=== PATIENT | male | born 1995 | race American Indian/Alaskan Native ===

== ENCOUNTER 2021-05-05 17:03 | Inpatient (IN) | payer BC, OTHER ==
[2021-05-05 18:16] LABS: Basophils % (Auto) 0.3 % (0.0-1.8); Eosinophils # (Auto) 0.1 K/mm3 (0.0-0.4); Eosinophils % (Auto) 1.4 % (0.0-4.3); Hematocrit 42.7 % (35.5-45.6); Hemoglobin 14.3 gm/dl (11.8-15.2); Lymphocytes # (Auto) 2.3 K/mm3 (1.2-5.4); Lymphocytes % (Auto) 23.8 % (13.4-35.0); Mean Corpuscular HGB Conc 33 % (32-34); Mean Corpuscular Volume 96 fl (84-94); Monocytes # (Auto) 0.6 K/mm3 (0.0-0.8); Monocytes % (Auto) 6.5 % (0.0-7.3); Platelet Count 238 K/mm3 (140-440); Red Blood Count 4.46 M/mm3 (3.65-5.03); Red Cell Distribution Width 13.3 % (13.2-15.2)
[2021-05-05 18:39] LABS: Alanine Aminotransferase 15 units/L (7-56); Albumin 4.1 g/dL (3.9-5); BUN/Creatinine Ratio 5; Blood Urea Nitrogen 5 mg/dL (9-20); Calcium 9.9 mg/dL (8.4-10.2); Hemolysis Index 19
[2021-05-05 18:50] LABS: Bilirubin,Direct < 0.2 mg/dL (0-0.2)
[2021-05-05] MEDS ORDERED: SODIUM CHLORIDE 0.9% 1000 ML 1,000 ML IV ONE (18:59)
[2021-05-05] MEDS ORDERED: HYDROmorphone 1 MG/1 ML INJ IV ONE ×2 (18:59→19:37)
[2021-05-05] MEDS ORDERED: ONDANSETRON 4 MG/2 ML INJ IV ONE ×2 (19:00→19:37)
--- NOTE | 2021-05-05 19:07 | Emergency Department Report ---
HPI - General Chief Complaint: Abdominal Pain Time Seen by Provider: 05/05/21 17:52 - HPI HPI: 26-year-old male with no known past medical history presents complaining of sudden onset of right sided lower back pain which has migrated around his flank to the right lower quadrant of his abdomen since 4 PM today. The patient says that approximately 2 and half hours prior to arrival he was driving his car when he began to experience a dull pain in his right lower back it quickly progressed around his flank to the right lower quadrant of his abdomen. He describes it as a pressure-like pain. It is 8 out of 10 in severity and with associated nausea but no vomiting. There are no known aggravating or alleviating factors. Other than this he has had very mild dry cough over the past few days. He denies any other associated symptoms or complaints including fever/chills, headache, vision change, chest pain, shortness of breath, focal weakness, sensory changes, dysuria, hematuria, or any other complaints. ED Past Medical Hx - Past Medical History Previous Medical History?: No - Surgical History Past Surgical History?: No - Social History Smoking Status: Never Smoker Substance Use Type: None - Medications Home Medications: Home Medications Medication Instructions Recorded Confirmed Last Taken Type Bictegrav/Emtricit/Tenofov Ala 1 tab PO DAILY 05/05/21 05/05/21 Unknown History [Biktarvy 50-200-25 mg (Nf)] ED Review of Systems ROS: Stated complaint: ABD PAIN Other details as noted in HPI Constitutional: denies: chills, fever Eyes: denies: eye pain, vision change ENT: denies: throat pain, congestion Respiratory: cough. denies: shortness of breath Cardiovascular: denies: chest pain, palpitations Gastrointestinal: abdominal pain, nausea. denies: vomiting, diarrhea Genitourinary: denies: dysuria, hematuria Musculoskeletal: back pain. denies: myalgia Skin: denies: rash Neurological: denies: headache, weakness, numbness Physical Exam - Physical Exam Vital Signs: Vital Signs 05/05/21 05/05/21 17:48 18:25 Temperature 98.6 F Pulse Rate 50 L 52 L Respiratory 18 15 Rate Blood Pressure 138/88 137/91 [Right] O2 Sat by Pulse 98 100 Oximetry Physical Exam: GENERAL: Well developed and well nourished. In mild distress secondary to pain HEENT: Normocephalic. No obvious signs of trauma. Moist mucous membranes. EYES: Extraocular movements are intact. Pupils are equal round and reactive to light bilaterally NECK: Supple. Trachea is midline. LUNGS: Nonlabored breathing. Equal chest rise bilaterally. Clear to auscultation bilaterally. HEART/CARDIOVASCULAR: Regular rate and rhythm. No murmurs or rubs. VASCULAR: 2+ peripheral pulses. Cap refill < 2 seconds ABDOMEN: Abdomen is soft and nondistended. There is tenderness to palpation of the right upper quadrant and right lower quadrant with voluntary but no involuntary guarding. There is no rebound tenderness. SKIN: Skin is warm and dry NEURO: Patient is awake, alert, and oriented. teller vault II-XII grossly intact. No focal deficits. Normal motor and sensory exam throughout. Normal speech. MUSCULOSKELETAL: No obvious deformities. No significant tenderness. BACK/SPINE: No mid-spinal or costovertebral angle tenderness. ED Course Vital Signs 05/05/21 05/05/21 17:48 18:25 Temperature 98.6 F Pulse Rate 50 L 52 L Respiratory 18 15 Rate Blood Pressure 138/88 137/91 [Right] O2 Sat by Pulse 98 100 Oximetry ED Medical Decision Making - Lab Data Result diagrams: 05/06/21 04:47 05/06/21 04:47 Lab Results 05/05/21 05/05/21 05/05/21 Range/Units 18:01 18:01 19:03 WBC 9.8 (4.5-11.0) K/mm3 RBC 4.46 (3.65-5.03) M/mm3 Hgb 14.3 (11.8-15.2) gm/dl Hct 42.7 (35.5-45.6) % MCV 96 H (84-94) fl MCH 32 (28-32) pg MCHC 33 (32-34) % RDW 13.3 (13.2-15.2) % Plt Count 238 (140-440) K/mm3 Lymph % (Auto) 23.8 (13.4-35.0) % [place] % (Auto) 6.5 (0.0-7.3) % Eos % (Auto) 1.4 (0.0-4.3) % Baso % (Auto) 0.3 (0.0-1.8) % Lymph # (Auto) 2.3 (1.2-5.4) K/mm3 [place] # (Auto) 0.6 (0.0-0.8) K/mm3 Eos # (Auto) 0.1 (0.0-0.4) K/mm3 Baso # (Auto) 0.0 (0.0-0.1) K/mm3 Seg Neutrophils % 68.0 (40.0-70.0) % Seg Neutrophils # 6.7 (1.8-7.7) K/mm3 Sodium 138 (137-145) mmol/L Potassium 3.9 (3.6-5.0) mmol/L Chloride 102.6 (98-107) mmol/L Carbon Dioxide 28 (22-30) mmol/L Anion Gap 11 mmol/L BUN 5 L (9-20) mg/dL Creatinine 1.0 (0.8-1.3) mg/dL Estimated GFR > 60 ml/min BUN/Creatinine Ratio 5 % Glucose 94 (75-100) mg/dL Calcium 9.9 (8.4-10.2) mg/dL Total Bilirubin 0.20 (0.1-1.2) mg/dL Direct Bilirubin < 0.2 (0-0.2) mg/dL Indirect Bilirubin 0.0 mg/dL AST 25 (5-40) units/L ALT 15 (7-56) units/L Alkaline Phosphatase 91 (35-129) units/L Total Protein 7.7 (6.3-8.2) g/dL Albumin 4.1 (3.9-5) g/dL Albumin/Globulin Ratio 1.1 % Lipase 33 (13-60) units/L Urine Color Yellow (Yellow) Urine Turbidity Clear (Clear) Urine pH 6.0 (5.0-7.0) Ur Specific [place] 1.039 H (1.003-1.030) Urine Protein <15 mg/dl (Negative) mg/dL Urine Glucose (UA) Neg (Negative) mg/dL Urine Ketones Neg (Negative) mg/dL Urine Blood Lg (Negative) Urine Nitrite Neg (Negative) Urine Bilirubin Neg (Negative) Urine Urobilinogen < 2.0 (<2.0) mg/dL Ur Leukocyte Esterase Neg (Negative) Urine WBC (Auto) 19.0 H (0.0-6.0) /HPF Urine RBC (Auto) > 182.0 (0.0-6.0) /HPF U Epithel Cells (Auto) < 1.0 (0-13.0) /HPF Urine Mucus 1+ /HPF Urine Yeast (Budding) Few /HPF - Radiology Data CT ABDOMEN AND PELVIS WITH IV CONTRAST INDICATION: Right flank pain, RLQ tenderness 100 ML OMNI 300. COMPARISON: None available. TECHNIQUE: All CT scans at this facility use dose modulation, automated exposure control, iterative reconstruction or weight based dosing, when appropriate, to reduce radiation dose to as low as reasonably achievable. FINDINGS: Lung Bases: No significant abnormality. Skeletal System: No acute abnormality. 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 ABDOMEN: Liver: No significant abnormality. Gallbladder: There is mild gallbladder wall edema. Bile Ducts: No significant abnormality. Pancreas: No significant abnormality. Spleen: No significant abnormality. Adrenals: No significant abnormality. Right Kidney: There is a 2 mm obstructing stone in the proximal right ureter with mild right hydronephrosis. There are a few nonobstructing calyceal stones which are 1 to 2 mm. Left Kidney: There are a few punctate nonobstructing calyceal stones. Upper GI tract: No significant abnormality. Lymph Nodes: No significant adenopathy. Aorta: No significant abnormality. Additional Findings: No significant abnormality. PELVIS: Colon: No acute abnormality. Urinary Bladder and Distal Ureters: No significant abnormality. Appendix: No significant abnormality. Lymph Nodes: No significant adenopathy. Additional Findings: None. IMPRESSION: 1. 2 mm obstructing stone in the proximal right ureter with mild right hydronephrosis. Bilateral nephrolithiasis is noted. 2. Incidental finding s, as above. Signer Name: Rich Méndez MD Signed: 05/05/2021 6:45 PM Workstation Name: [id number] - Medical Decision Making 26-year-old otherwise healthy male presenting with sudden onset right lower back pain which has migrated around his flank to the right lower quadrant. Some associated nausea but without vomiting. He is afebrile and with normal vital signs. On physical exam he has tenderness to palpation of the right upper quadrant and right lower quadrant voluntary but no involuntary guarding. He has no rebound tenderness. He has no CVA tenderness. Although the patient's symptoms could be explained by a kidney stone, given his abdominal tenderness we will perform broad work-up with full set of abdominal labs and CT of the abdomen and pelvis. We will give 1 L of IV fluids, Dilaudid, and Zofran and reassess. On repeat assessment at 6:50 PM, the patient reports that his pain is much improved. Labs have resulted and reveal no significant leukocytosis or anemia. There is no significant electrolyte abnormality. Kidney function is normal. At 7:36 PM, the patient reports that his pain has returned. We will therefore administer Dilaudid again and follow-up the results of the CT. CT of the abdomen pelvis reveals a 2 mm obstructing stone in the proximal right ureter with mild right hydronephrosis. Will obtain urinalysis to assess for evidence of infected obstructed ureteral stone. Urinalysis reveals multiple RBCs but also with 19 WBCs. Given the possibility of an infected obstructed kidney stone, I will send blood cultures and administ er IV ceftriaxone. I spoke over the phone with Dr. Phelps of urology who indicated that he is happy to consult on the patient. For now he recommends starting Flomax and having the patient strain his urine. The patient will be admitted to the hospitalist for further management. All this was discussed with the patient who expressed understanding and agreement with the plan of care. Critical care attestation.: If time is entered above; I have spent that time in minutes in the direct care of this critically ill patient, excluding procedure time. ED Disposition Clinical Impression: Right ureteral calculus, UTI (urinary tract infection), Hydronephrosis, right Disposition: [id number] OP ADMIT IP TO THIS HOSP Is pt being admited?: Yes Condition: Stable
--- NOTE | 2021-05-05 19:49 | Cat Scan Report ---
CT ABDOMEN AND PELVIS WITH IV CONTRAST INDICATION: Right flank pain, RLQ tenderness 100 ML OMNI 300. COMPARISON: None available. TECHNIQUE: All CT scans at this facility use dose modulation, automated exposure control, iterative reconstructi on or weight based dosing, when appropriate, to reduce radiation dose to as low as reasonably achieva ble. FINDINGS: Lung Bases: No significant abnormality. Skeletal System: No acute abnormality. 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 ABDOMEN: Liver: No significant abnormality. Gallbladder: There is mild gallbladder wall edema. Bile Ducts: No significant abnormality. Pancreas: No significant abnormality. Spleen: No significant abnormality. Adrenals: No significant abnormality. Right Kidney: There is a 2 mm obstructing stone in the proximal right ureter with mild right hydronep hrosis. There are a few nonobstructing calyceal stones which are 1 to 2 mm. Left Kidney: There are a few punctate nonobstructing calyceal stones. Upper GI tract: No significant abnormality. Lymph Nodes: No significant adenopathy. Aorta: No significant abnormality. Additional Findings: No significant abnormality. PELVIS: Colon: No acute abnormality. Urinary Bladder and Distal Ureters: No significant abnormality. Appendix: No significant abnormality. Lymph Nodes: No significant adenopathy. Additional Findings: None. IMPRESSION: 1. 2 mm obstructing stone in the proximal right ureter with mild right hydronephrosis. Bilateral nep hrolithiasis is noted. 2. Incidental findings, as above. Signer Name: Rich Méndez MD Signed: 05/05/2021 7:45 PM Workstation Name: [id number]
[2021-05-05] MEDS: HYDROmorphone 1 MG/1 ML INJ IV ONE ×2 (19:53→22:46)
[2021-05-05 20:37] LABS: Bilirubin,Urine NEG (Negative); Blood,Urine LG (Negative); Color,Urine Yellow (Yellow); Mucus,Urine 1+ /HPF; Protein,Urine <15 mg/dL mg/dL (Negative); Urobilinogen,Urine < 2.0 mg/dL (<2.0)
[2021-05-05 20:46] LABS: RBC,Urine > 182.0 /HPF (0.0-6.0)
[2021-05-05] MEDS ORDERED: cefTRIAXone/NS 2 GM/100 ML 2 GM/100 ML BAG IV ONE (21:18)
[2021-05-05] MEDS ORDERED: MORPHINE 2 MG/1 ML INJ IV PRN (22:04)
[2021-05-05] MEDS ORDERED: MAGNESIUM HYDROXIDE (MOM) ORAL LIQD UDC PO PRN (22:04)
[2021-05-05] MEDS ORDERED: ONDANSETRON 4 MG/2 ML INJ IV PRN (22:04)
--- NOTE | 2021-05-05 22:12 | History and Physical Report ---
History of Present Illness Date of examination: 05/05/21 Date of admission: 05/05/21 21:49 Chief complaint: Right Flank Pain History of present illness: 26-year-old -Mal[place]ian male with known history of HIV with CD4 count of 700s-LE April 2021 presenting to the emergency room today complaining of right- sided flank pain and right sided upper abdominal pain which started suddenly this evening. Pain has been ongoing for about 2-1/2 hours prior to reporting to the emergency room. Pain is said to feel like a dull ache. He denies any fall and denies any trauma to the abdomen. There is no known relieving or exacerbating factor. Patient denies any fever or chills, no nausea vomiting, no no diarrhea, no hematuria or dysuria. Patient denies any sick contacts and no recent travel. Denies any contact with anyone with COVID-19. Work-up in the emergency room today, CT of the abdomen and pelvis shows a 2 mm obstructing stone in the proximal right ureter with mild right hydronephrosis. There is bilateral nephrolithiasis Urinalysis reveals UTI. Patient has been admitted with nephrolithiasis and accompanying UTI. Past History Past Medical History: No medical history (Positive- unknown CD4 count.), other (HIV+ve with CD4 count in the - April 2021) Past Surgical History: No surgical history Social history: alcohol abuse (Occasionally) Family history: no significant family history Medications and Allergies Allergies Allergy/AdvReac Type Severity Reaction Status Date / Time No Known Allergies Allergy Unverified 05/05/21 18:11 Home Medications Medication Instructions Recorded Confirmed Last Taken Type Bictegrav/Emtricit/Tenofov Ala 1 tab PO DAILY 05/05/21 05/05/21 Unknown History [Biktarvy 50-200-25 mg (Nf)] Active Meds: Active Medications Acetaminophen (Acetaminophen 325 Mg Tab) 650 mg PO Q4H PRN PRN Reason: Pain MILD(1-3)/Fever >100.5/BLAS Ondansetron HCl (Ondansetron 4 Mg/2 Ml Inj) 4 mg IV Q8H PRN PRN Reason: Nausea And Vomiting Sodium Chloride (Sodium Chloride 0.9% 10 Ml Flush Syringe) 10 ml IV BID MARILY Sodium Chloride (Sodium Chloride 0.9% 10 Ml Flush Syringe) 10 ml IV PRN PRN PRN Reason: LINE FLUSH Tamsulosin HCl (Tamsulosin 0.4 Mg Cap) 0.4 mg PO DAILY MARILY Review of Systems Constitutional: no fever, no chills Ears, nose, mouth and throat: no nasal congestion, no sore throat Cardiovascular: no chest pain, no palpitations Respiratory: no cough, no shortness of breath, no wheezing Gastrointestinal: abdominal pain (Right upper abdomen.), nausea, no vomiting, no diarrhea Genitourinary Male: flank pain (Right flank pain) Musculoskeletal: no neck pain, no low back pain Integumentary: no rash, no pruritis Neurological: no headaches, no confusion Psychiatric: no anxiety, no depression Endocrine: no polyphagia, no polydipsia, no polyuria, no nocturia Exam - Constitutional Vitals: Temp Pulse Resp BP Pulse Ox 98.6 F 52 L 15 137/91 100 05/05/21 17:48 05/05/21 18:25 05/05/21 18:25 05/05/21 18:25 05/05/21 18:25 General appearance: Present: no acute distress, well-nourished - EENT Eyes: Present: PERRL, EOM intact. Absent: scleral icterus ENT: hearing intact, clear oral mucosa, dentition normal - Neck Neck: Present: supple, normal ROM - Respiratory Respiratory effort: normal Respiratory: bilateral: CTA - Cardiovascular Rhythm: regular Heart Sounds: Present: S1 & S2. Absent: gallop, systolic murmur, diastolic murmur, rub, click - Extremities Extremities: no ischemia, No edema Peripheral Pulses: within normal limits - Abdominal General gastrointestinal: Present: soft, tender (Mild right CVA tenderness), non-distended, normal bowel sounds. Absent: mass - Integumentary Integumentary: Present: clear, warm, dry. Absent: rash - Musculoskeletal Musculoskeletal: strength equal bilaterally - Psychiatric Psychiatric: appropriate mood/affect, intact judgment & insight, memory intact, cooperative - Neurologic Neurologic: CNII-XII intact, no focal deficits, moves all extremities Results - Labs CBC & Chem 7: 05/05/21 18:01 05/05/21 18:01 Labs: Abnormal lab results 05/05/21 05/05/21 05/05/21 Range/Units 18:01 18:01 19:03 MCV 96 H (84-94) fl BUN 5 L (9-20) mg/dL Ur Specific [place] 1.039 H (1.003-1.030) Urine WBC (Auto) 19.0 H (0.0-6.0) /HPF Assessment and Plan - Patient Problems (1) UTI (urinary tract infection) Current Visit: Yes Status: Acute Plan to address problem: Possibly secondary to the infected stone. Patient placed on empiric IV antibiotics. (2) Renal calculus, right Current Visit: Yes Status: Acute Plan to address problem: We will continue on IV fluid and analgesic medication. Urologist is been consulted for evaluation and recommendation. (3) DVT prophylaxis Current Visit: Yes Status: Acute Plan to address problem: Patient placed on sequential compression device. (4) Full code status Current Visit: Yes Status: Acute Plan to address problem: Patient is a full code.
[2021-05-05] MEDS: TAMSULOSIN 0.4 MG CAP PO SCH (22:42)
[2021-05-06 05:33] LABS: Basophils % (Auto) 0.3 % (0.0-1.8); Eosinophils # (Auto) 0.1 K/mm3 (0.0-0.4); Eosinophils % (Auto) 1.3 % (0.0-4.3); Lymphocytes # (Auto) 3.1 K/mm3 (1.2-5.4); Lymphocytes % (Auto) 36.4 % (13.4-35.0); Mean Corpuscular HGB Conc 33 % (32-34); Mean Corpuscular Volume 95 fl (84-94); Monocytes # (Auto) 0.7 K/mm3 (0.0-0.8); Monocytes % (Auto) 7.9 % (0.0-7.3); Platelet Count 229 K/mm3 (140-440); Red Blood Count 4.41 M/mm3 (3.65-5.03); Red Cell Distribution Width 13.7 % (13.2-15.2)
[2021-05-06 05:48] LABS: INR 1.07 (0.87-1.13)
[2021-05-06 06:11] LABS: BUN/Creatinine Ratio 6; Blood Urea Nitrogen 5 mg/dL (9-20); Calcium 8.9 mg/dL (8.4-10.2); Hemolysis Index 14
--- NOTE | 2021-05-06 08:24 | Progress Note ---
Assessment and Plan dicvtated npo recheck ct no sig pain now Subjective Date of service: 05/06/21 Principal diagnosis: stone r Objective - Constitutional Vitals: Vital Signs - 12hr 05/05/21 05/05/21 05/05/21 22:20 22:30 22:36 Temperature Pulse Rate 60 57 L Respiratory 14 14 18 Rate Blood Pressure 112/75 106/79 O2 Sat by Pulse 99 100 98 Oximetry 05/05/21 05/05/21 05/06/21 22:45 23:01 04:10 Temperature 98.6 F 98.0 F Pulse Rate 69 56 L 73 Respiratory 17 18 18 Rate Blood Pressure 132/84 119/81 O2 Sat by Pulse 98 98 97 Oximetry General appearance: Present: no acute distress - Neck Neck: supple - Respiratory Respiratory effort: normal Extremities: no ischemia - Gastrointestinal General gastrointestinal: Present: soft, non-tender - Genitourinary Male genitourinary: normal - Labs CBC & Chem 7: 05/06/21 04:47 05/06/21 04:47 Labs: Abnormal lab results 05/05/21 05/05/21 05/05/21 Range/Units 18:01 18:01 19:03 MCV 96 H (84-94) fl Lymph % (Auto) (13.4-35.0) % [place] % (Auto) (0.0-7.3) % BUN 5 L (9-20) mg/dL Ur Specific [place] 1.039 H (1.003-1.030) Urine WBC (Auto) 19.0 H (0.0-6.0) /HPF 05/06/21 05/06/21 Range/Units 04:47 04:47 MCV 95 H (84-94) fl Lymph % (Auto) 36.4 H (13.4-35.0) % [place] % (Auto) 7.9 H (0.0-7.3) % BUN 5 L (9-20) mg/dL Ur Specific [place] (1.003-1.030) Urine WBC (Auto) (0.0-6.0) /HPF Medications & Allergies - Medications Allergies/Adverse Reactions: Allergies No Known Allergies Allergy (Unverified 05/05/21 18:11) Home Medications: Home Medications Medication Instructions Recorded Confirmed Last Taken Type Bictegrav/Emtricit/Tenofov Ala 1 tab PO DAILY 05/05/21 05/05/21 Unknown History [Biktarvy 50-200-25 mg (Nf)] Active Medications: Generic Name Dose Route Start Last Admin Trade Name Freq PRN Reason Stop Dose Admin Acetaminophen 650 mg 05/05/21 22:04 Acetaminophen 325 Mg Tab PO Q4H PRN Pain MILD(1-3)/Fever >100.5/BLAS Sodium Chloride 1,000 mls @ 125 mls/hr 05/05/21 22:15 05/06/21 00:00 Nacl 0.9% 1000 Ml IV 125 mls/hr DIRECT MARILY Administration Ceftriaxone Sodium 2 gm in 100 mls @ 200 mls/hr 05/05/21 23:00 Rocephin/Ns 2 Gm/100 Ml IV Q24H MARILY Protocol Magnesium Hydroxide 30 ml 05/05/21 22:04 Magnesium Hydroxide (Mom) Oral Liqd Udc PO Q4H PRN Constipation Morphine Sulfate 2 mg 05/05/21 22:04 Morphine 2 Mg/1 Ml Inj IV Q4H PRN Pain, Moderate (4-6) Ondansetron HCl 4 mg 05/05/21 22:04 Ondansetron 4 Mg/2 Ml Inj IV Q8H PRN Nausea And Vomiting Sodium Chloride 10 ml 05/06/21 10:00 Sodium Chloride 0.9% 10 Ml Flush Syringe IV BID MARILY Sodium Chloride 10 ml 05/05/21 22:04 Sodium Chloride 0.9% 10 Ml Flush Syringe IV PRN PRN LINE FLUSH Tamsulosin HCl 0.4 mg 05/05/21 22:00 05/05/21 22:42 Tamsulosin 0.4 Mg Cap PO 0.4 mg DAILY MARILY Administration
--- NOTE | 2021-05-06 08:58 | Progress Note ---
Assessment and Plan Assessment and plan: Right ureteral stone Right hydronephrosis. UTI History of HIV 05/06/2021. CT of the abdomen and pelvis shows a 2 mm obstructing stone in the proximal right ureter with mild right hydronephrosis. Urology following. Continue IV antibiotics. Consider ID consultation. Follow-up urine and blood cultures. History Interval history: No new issues overnight. Hospitalist Physical - Constitutional Vitals: Temp Pulse Resp BP Pulse Ox 98.0 F 73 18 119/81 97 05/06/21 04:10 05/06/21 04:10 05/06/21 04:10 05/06/21 04:10 05/06/21 04:10 General appearance: Present: no acute distress - EENT Eyes: Present: PERRL, EOM intact ENT: hearing intact, clear oral mucosa, dentition normal - Neck Neck: Present: supple, normal ROM - Respiratory Respiratory effort: normal Respiratory: bilateral: CTA - Cardiovascular Rhythm: regular Heart Sounds: Present: S1 & S2. Absent: gallop, rub - Extremities Extremities: no ischemia, No edema, Full ROM - Abdominal General gastrointestinal: soft, non-tender, non-distended, normal bowel sounds - Integumentary Integumentary: Present: clear, warm, dry - Neurologic Neurologic: CNII-XII intact, moves all extremities Results - Labs CBC & Chem 7: 05/06/21 04:47 05/06/21 04:47 Labs: Laboratory Last Values WBC 8.5 K/mm3 (4.5-11.0) 05/06/21 04:47 RBC 4.41 M/mm3 (3.65-5.03) 05/06/21 04:47 Hgb 14.0 gm/dl (11.8-15.2) 05/06/21 04:47 Hct 42.0 % (35.5-45.6) 05/06/21 04:47 MCV 95 fl (84-94) H 05/06/21 04:47 MCH 32 pg (28-32) 05/06/21 04:47 MCHC 33 % (32-34) 05/06/21 04:47 RDW 13.7 % (13.2-15.2) 05/06/21 04:47 Plt Count 229 K/mm3 (140-440) 05/06/21 04:47 Lymph % (Auto) 36.4 % (13.4-35.0) H 05/06/21 04:47 [place] % (Auto) 7.9 % (0.0-7.3) H 05/06/21 04:47 Eos % (Auto) 1.3 % (0.0-4.3) 05/06/21 04:47 Baso % (Auto) 0.3 % (0.0-1.8) 05/06/21 04:47 Lymph # (Auto) 3.1 K/mm3 (1.2-5.4) 05/06/21 04:47 [place] # (Auto) 0.7 K/mm3 (0.0-0.8) 05/06/21 04:47 Eos # (Auto) 0.1 K/mm3 (0.0-0.4) 05/06/21 04:47 Baso # (Auto) 0.0 K/mm3 (0.0-0.1) 05/06/21 04:47 Seg Neutrophils % 54.1 % (40.0-70.0) 05/06/21 04:47 Seg Neutrophils # 4.6 K/mm3 (1.8-7.7) 05/06/21 04:47 PT 14.4 Sec. (12.2-14.9) 05/06/21 04:47 INR 1.07 (0.87-1.13) 05/06/21 04:47 Sodium 141 mmol/L (137-145) 05/06/21 04:47 Potassium 3.9 mmol/L (3.6-5.0) 05/06/21 04:47 Chloride 106.3 mmol/L (98-107) 05/06/21 04:47 Carbon Dioxide 28 mmol/L (22-30) 05/06/21 04:47 Anion Gap 11 mmol/L 05/06/21 04:47 BUN 5 mg/dL (9-20) L 05/06/21 04:47 Creatinine 0.9 mg/dL (0.8-1.3) 05/06/21 04:47 Estimated GFR > 60 ml/min 05/06/21 04:47 BUN/Creatinine Ratio 6 % 05/06/21 04:47 Glucose 87 mg/dL (75-100) 05/06/21 04:47 Calcium 8.9 mg/dL (8.4-10.2) 05/06/21 04:47 Total Bilirubin 0.20 mg/dL (0.1-1.2) 05/05/21 18:01 Direct Bilirubin < 0.2 mg/dL (0-0.2) 05/05/21 18:01 Indirect Bilirubin 0.0 mg/dL 05/05/21 18:01 AST 25 units/L (5-40) 05/05/21 18:01 ALT 15 units/L (7-56) 05/05/21 18:01 Alkaline Phosphatase 91 units/L (35-129) 05/05/21 18:01 Total Protein 7.7 g/dL (6.3-8.2) 05/05/21 18:01 Albumin 4.1 g/dL (3.9-5) 05/05/21 18:01 Albumin/Globulin Ratio 1.1 % 05/05/21 18:01 Lipase 33 units/L (13-60) 05/05/21 18:01 Urine Color Yellow (Yellow) 05/05/21 19:03 Urine Turbidity Clear (Clear) 05/05/21 19:03 Urine pH 6.0 (5.0-7.0) 05/05/21 19:03 Ur Specific [place] 1.039 (1.003-1.030) H 05/05/21 19:03 Urine Protein <15 mg/dl mg/dL (Negative) 05/05/21 19:03 Urine Glucose (UA) Neg mg/dL (Negative) 05/05/21 19:03 Urine Ketones Neg mg/dL (Negative) 05/05/21 19:03 Urine Blood Lg (Negative) 05/05/21 19:03 Urine Nitrite Neg (Negative) 05/05/21 19:03 Urine Bilirubin Neg (Negative) 05/05/21 19:03 Urine Urobilinogen < 2.0 mg/dL (<2.0) 05/05/21 19:03 Ur Leukocyte Esterase Neg (Negative) 05/05/21 19:03 Urine WBC (Auto) 19.0 /HPF (0.0-6.0) H 05/05/21 19:03 Urine RBC (Auto) > 182.0 /HPF (0.0-6.0) 05/05/21 19:03 U Epithel Cells (Auto) < 1.0 /HPF (0-13.0) 05/05/21 19:03 Urine Mucus 1+ /HPF 05/05/21 19:03 Urine Yeast (Budding) Few /HPF 05/05/21 19:03 Microbiology: Microbiology 05/05/21 21:25 Peripheral/Venous Blood Culture - Preliminary Culture in Progress 05/05/21 21:25 Peripheral/Venous Blood Culture - Preliminary Culture in Progress [place]/IV: Voiding Method Toilet Active Medications - Current Medications Current Medications: Generic Name Dose Route Start Last Admin Trade Name Freq PRN Reason Stop Dose Admin Acetaminophen 650 mg 05/05/21 22:04 Acetaminophen 325 Mg Tab PO Q4H PRN Pain MILD(1-3)/Fever >100.5/BLAS Sodium Chloride 1,000 mls @ 125 mls/hr 05/05/21 22:15 05/06/21 00:00 Nacl 0.9% 1000 Ml IV 125 mls/hr DIRECT MARILY Administration Ceftriaxone Sodium 2 gm in 100 mls @ 200 mls/hr 05/05/21 23:00 Rocephin/Ns 2 Gm/100 Ml IV Q24H MARILY Protocol Magnesium Hydroxide 30 ml 05/05/21 22:04 Magnesium Hydroxide (Mom) Oral Liqd Udc PO Q4H PRN Constipation Morphine Sulfate 2 mg 05/05/21 22:04 Morphine 2 Mg/1 Ml Inj IV Q4H PRN Pain, Moderate (4-6) Ondansetron HCl 4 mg 05/05/21 22:04 Ondansetron 4 Mg/2 Ml Inj IV Q8H PRN Nausea And Vomiting Sodium Chloride 10 ml 05/06/21 10:00 Sodium Chloride 0.9% 10 Ml Flush Syringe IV BID MARILY Sodium Chloride 10 ml 05/05/21 22:04 Sodium Chloride 0.9% 10 Ml Flush Syringe IV PRN PRN LINE FLUSH Tamsulosin HCl 0.4 mg 05/05/21 22:00 05/05/21 22:42 Tamsulosin 0.4 Mg Cap PO 0.4 mg DAILY MARILY Administration
--- NOTE | 2021-05-06 09:26 | Cat Scan Report ---
CT ABDOMEN AND PELVIS WITHOUT CONTRAST INDICATION / CLINICAL INFORMATION: Right ureteral stone, nephrolithiasis. TECHNIQUE: Axial CT images were obtained through the abdomen and pelvis without IV contrast. All CT scans at this location are performed using CT dose reduction for ALARA by means of automated exposure control. COMPARISON: CT scan dated 05/05/2021 FINDINGS: LOWER CHEST: There is minimal atelectasis in the right base. LIVER: No significant abnormality. GALLBLADDER: No significant abnormality. There is some high density material within the gallbladder o n the current study indicating vicarious excretion of contrast from the CT scan performed yesterday. BILE DUCTS: No significant abnormality. PANCREAS: No significant abnormality. SPLEEN: No significant abnormality. ADRENALS: No significant abnormality. RIGHT KIDNEY / URETER: 2 mm right ureteral stone appears unchanged. Nephrolithiasis appears unchanged . There is mild hydronephrosis which is stable. LEFT KIDNEY / URETER: Nephrolithiasis appears unchanged. STOMACH / SMALL BOWEL: No significant abnormality. COLON: No significant abnormality. APPENDIX: No significant abnormality. PERITONEUM: No free fluid. No free air. No fluid collection. LYMPH NODES: No significant adenopathy. AORTA / ARTERIES: No significant abnormality. IVC / VEINS: No significant abnormality. URINARY BLADDER: No significant abnormality. REPRODUCTIVE ORGANS: No significant abnormality. ADDITIONAL FINDINGS: None. SKELETAL SYSTEM: No significant abnormality. IMPRESSION: 1. 2 mm right ureteral stone with mild hydronephrosis appears unchanged. 2. Bilateral nephrolithiasis appears unchanged. Signer Name: Raman Ospina MD Signed: 05/06/2021 9:21 AM Workstation Name: [id number]
[2021-05-06] MEDS: cefTRIAXone/NS 2 GM/100 ML 2 GM/100 ML BAG IV SCH ×2 (12:33→22:38)
--- NOTE | 2021-05-06 14:02 | Consultation ---
DATE OF CONSULTATION: 05/06/2021 HISTORY OF PRESENT ILLNESS: The patient is a 26-year-old gentleman, admitted with severe right flank pain. He had a 2 mm stone in the upper ureter. The Emergency Room doctor asked if I would consult and the pain was unbearable. He had some evidence of infection, so they wanted to admit him. He is not in much pain now, but he is very concerned and does not want to go home if he thinks this may recur. PAST MEDICAL HISTORY: Negative. PAST SURGICAL HISTORY: Negative. SOCIAL HISTORY: Negative. FAMILY HISTORY: Noncontributory. REVIEW OF SYSTEMS: Intermittent right flank pain, right now improved. PHYSICAL EXAMINATION: GENERAL: He is awake. He is in no distress. ABDOMEN: Soft, nondistended. No significant CVA tenderness. GENITALIA: Testes descended bilaterally. Normal penis. No edema. IMPRESSION AND PLAN: Right 2 mm stone has not passed as yet. Repeat CT scan to see whether he passed it overnight because the urine was not strained and I will make the determination whether he wants anything done. All risks, implications discussed. Informed consent was obtained. We will repeat CT this morning. TID: [id number] RECEIPT: SHYLA/VIV/NICOLE
[2021-05-06] MEDS: TAMSULOSIN 0.4 MG CAP PO SCH (15:35)
[2021-05-06] MEDS: SODIUM CHLORIDE 0.9% 1000 ML 1,000 ML IV SCH ×2 (17:17)
--- NOTE | 2021-05-06 17:32 | Anesthesia Consultation ---
Anesthesia Consult and Med Hx Date of service: 05/07/21 - Airway Anesthetic Teeth Evaluation: Good ROM Head & Neck: Adequate Mental/Hyoid Distance: Adequate Mallampati Class: Class II Intubation Access Assessment: Probably Good - Pulmonary Exam CTA: Yes - Cardiac Exam Cardiac Exam: RRR - Pre-Operative Health Status ASA Pre-Surgery Classification: ASA2 Proposed Anesthetic Plan: General - Pulmonary Hx Smoking: No Hx Asthma: Yes (rare inhaler use) - Cardiovascular System Hx Hypertension: No - Central Nervous System CVA: No - Endocrine Hx Renal Disease: No (hynephrosis 2/2 renal stone with normal renal function) Hx Liver Disease: No Hx Insulin Dependent Diabetes: No Hx Non-Insulin Dependent Diabetes: No Hx Thyroid Disease: No - Other Systems Hx Obesity: No - Additional Comments Anesthesia Medical History Comments: Hx HIV on ARVs as outpatient. No prior GA. No FHx anesthetic complications.
[2021-05-06] MEDS: ACETAMINOPHEN 325 MG TAB PO PRN (23:15)
[2021-05-07] MEDS: SODIUM CHLORIDE 0.9% 1000 ML 1,000 ML IV SCH (00:39)
[2021-05-07] MEDS ORDERED: HYDROmorphone 1 MG/1 ML INJ ONE (07:48)
[2021-05-07] MEDS ORDERED: propofoL 200 MG/20 ML VIAL IV ONE (07:48)
[2021-05-07] MEDS ORDERED: LIDOCAINE MPF (2%) 20 MG/1 ML VIAL 5 ML ONE (07:48)
[2021-05-07] MEDS ORDERED: ONDANSETRON 4 MG/2 ML INJ IV PRN (08:17)
[2021-05-07] MEDS ORDERED: HYDROmorphone 1 MG/1 ML INJ IV PRN (08:17)
[2021-05-07] MEDS ORDERED: SODIUM CHLORIDE 0.9% 1000 ML 1,000 ML ONE (08:25)
--- NOTE | 2021-05-07 08:25 | Progress Note ---
Assessment and Plan Assessment and plan: Right ureteral stone Right hydronephrosis. UTI History of HIV 05/06/2021. CT of the abdomen and pelvis shows a 2 mm obstructing stone in the proximal right ureter with mild right hydronephrosis. Urology following. Continue IV antibiotics. Consider ID consultation. Follow-up urine and blood cultures. 05/07/2021. Repeat CT scan revealed no changes with obstructing stone in the proximal right ureter with hydronephrosis. Urology to perform surgery today for ureteral stone likely with stent placement. Continue pain control and supportive treatment with IV fluid hydration. History Interval history: No new issues overnight. Hospitalist Physical - Constitutional Vitals: Temp Pulse Resp BP Pulse Ox 98.8 F 68 20 114/68 100 05/07/21 07:26 05/07/21 07:26 05/07/21 07:26 05/07/21 07:26 05/07/21 07:26 General appearance: Present: no acute distress - EENT Eyes: Present: PERRL, EOM intact ENT: hearing intact, clear oral mucosa, dentition normal - Neck Neck: Present: supple, normal ROM - Respiratory Respiratory effort: normal Respiratory: bilateral: CTA - Cardiovascular Rhythm: regular Heart Sounds: Present: S1 & S2. Absent: gallop, rub - Extremities Extremities: no ischemia, No edema, Full ROM - Abdominal General gastrointestinal: soft, non-tender, non-distended, normal bowel sounds - Integumentary Integumentary: Present: clear, warm, dry - Neurologic Neurologic: CNII-XII intact, moves all extremities Results - Labs CBC & Chem 7: 05/06/21 04:47 05/06/21 04:47 Labs: Laboratory Last Values WBC 8.5 K/mm3 (4.5-11.0) 05/06/21 04:47 RBC 4.41 M/mm3 (3.65-5.03) 05/06/21 04:47 Hgb 14.0 gm/dl (11.8-15.2) 05/06/21 04:47 Hct 42.0 % (35.5-45.6) 05/06/21 04:47 MCV 95 fl (84-94) H 05/06/21 04:47 MCH 32 pg (28-32) 05/06/21 04:47 MCHC 33 % (32-34) 05/06/21 04:47 RDW 13.7 % (13.2-15.2) 05/06/21 04:47 Plt Count 229 K/mm3 (140-440) 05/06/21 04:47 Lymph % (Auto) 36.4 % (13.4-35.0) H 05/06/21 04:47 Lynn % (Auto) 7.9 % (0.0-7.3) H 05/06/21 04:47 Eos % (Auto) 1.3 % (0.0-4.3) 05/06/21 04:47 Baso % (Auto) 0.3 % (0.0-1.8) 05/06/21 04:47 Lymph # (Auto) 3.1 K/mm3 (1.2-5.4) 05/06/21 04:47 Lynn # (Auto) 0.7 K/mm3 (0.0-0.8) 05/06/21 04:47 Eos # (Auto) 0.1 K/mm3 (0.0-0.4) 05/06/21 04:47 Baso # (Auto) 0.0 K/mm3 (0.0-0.1) 05/06/21 04:47 Seg Neutrophils % 54.1 % (40.0-70.0) 05/06/21 04:47 Seg Neutrophils # 4.6 K/mm3 (1.8-7.7) 05/06/21 04:47 PT 14.4 Sec. (12.2-14.9) 05/06/21 04:47 INR 1.07 (0.87-1.13) 05/06/21 04:47 Sodium 141 mmol/L (137-145) 05/06/21 04:47 Potassium 3.9 mmol/L (3.6-5.0) 05/06/21 04:47 Chloride 106.3 mmol/L (98-107) 05/06/21 04:47 Carbon Dioxide 28 mmol/L (22-30) 05/06/21 04:47 Anion Gap 11 mmol/L 05/06/21 04:47 BUN 5 mg/dL (9-20) L 05/06/21 04:47 Creatinine 0.9 mg/dL (0.8-1.3) 05/06/21 04:47 Estimated GFR > 60 ml/min 05/06/21 04:47 BUN/Creatinine Ratio 6 % 05/06/21 04:47 Glucose 87 mg/dL (75-100) 05/06/21 04:47 POC Glucose 87 mg/dL (70-105) 05/06/21 11:46 Calcium 8.9 mg/dL (8.4-10.2) 05/06/21 04:47 Total Bilirubin 0.20 mg/dL (0.1-1.2) 05/05/21 18:01 Direct Bilirubin < 0.2 mg/dL (0-0.2) 05/05/21 18:01 Indirect Bilirubin 0.0 mg/dL 05/05/21 18:01 AST 25 units/L (5-40) 05/05/21 18:01 ALT 15 units/L (7-56) 05/05/21 18:01 Alkaline Phosphatase 91 units/L (35-129) 05/05/21 18:01 Total Protein 7.7 g/dL (6.3-8.2) 05/05/21 18:01 Albumin 4.1 g/dL (3.9-5) 05/05/21 18:01 Albumin/Globulin Ratio 1.1 % 05/05/21 18:01 Lipase 33 units/L (13-60) 05/05/21 18:01 Urine Color Yellow (Yellow) 05/05/21 19:03 Urine Turbidity Clear (Clear) 05/05/21 19:03 Urine pH 6.0 (5.0-7.0) 05/05/21 19:03 Ur Specific [place] 1.039 (1.003-1.030) H 05/05/21 19:03 Urine Protein <15 mg/dl mg/dL (Negative) 05/05/21 19:03 Urine Glucose (UA) Neg mg/dL (Negative) 05/05/21 19:03 Urine Ketones Neg mg/dL (Negative) 05/05/21 19:03 Urine Blood Lg (Negative) 05/05/21 19:03 Urine Nitrite Neg (Negative) 05/05/21 19:03 Urine Bilirubin Neg (Negative) 05/05/21 19:03 Urine Urobilinogen < 2.0 mg/dL (<2.0) 05/05/21 19:03 Ur Leukocyte Esterase Neg (Negative) 05/05/21 19:03 Urine WBC (Auto) 19.0 /HPF (0.0-6.0) H 05/05/21 19:03 Urine RBC (Auto) > 182.0 /HPF (0.0-6.0) 05/05/21 19:03 U Epithel Cells (Auto) < 1.0 /HPF (0-13.0) 05/05/21 19:03 Urine Mucus 1+ /HPF 05/05/21 19:03 Urine Yeast (Budding) Few /HPF 05/05/21 19:03 Microbiology: Microbiology 05/05/21 21:25 Peripheral/Venous Blood Culture - Preliminary NO GROWTH AFTER 24 HOURS 05/05/21 21:25 Peripheral/Venous Blood Culture - Preliminary NO GROWTH AFTER 24 HOURS [place]ard/IV: Voiding Method Urinal Active Medications - Current Medications Current Medications: Generic Name Dose Route Start Last Admin Trade Name Freq PRN Reason Stop Dose Admin Acetaminophen 650 mg 05/05/21 22:04 05/06/21 23:15 Acetaminophen 325 Mg Tab PO 650 mg Q4H PRN Administration Pain MILD(1-3)/Fever >100.5/BLAS Hydromorphone HCl 0.5 mg 05/07/21 08:17 Hydromorphone 1 Mg/1 Ml Inj IV Q10MIN PRN Pain , Severe (7-10) Sodium Chloride 1,000 mls @ 125 mls/hr 05/05/21 22:15 05/07/21 00:39 Nacl 0.9% 1000 Ml IV 125 mls/hr DIRECT MARILY Administration Ceftriaxone Sodium 2 gm in 100 mls @ 200 mls/hr 05/05/21 23:00 05/06/21 22:38 Rocephin/Ns 2 Gm/100 Ml IV 200 mls/hr Q24H MARILY Administration Protocol Magnesium Hydroxide 30 ml 05/05/21 22:04 Magnesium Hydroxide (Mom) Oral Liqd Udc PO Q4H PRN Constipation Morphine Sulfate 2 mg 05/05/21 22:04 Morphine 2 Mg/1 Ml Inj IV Q4H PRN Pain, Moderate (4-6) Ondansetron HCl 4 mg 05/05/21 22:04 Ondansetron 4 Mg/2 Ml Inj IV Q8H PRN Nausea And Vomiting Ondansetron HCl 4 mg 05/07/21 08:17 Ondansetron 4 Mg/2 Ml Inj IV ONCE PRN Nausea And Vomiting Sodium Chloride 10 ml 05/06/21 10:00 05/06/21 22:41 Sodium Chloride 0.9% 10 Ml Flush Syringe IV 10 ml BID MARILY Administration Sodium Chloride 10 ml 05/05/21 22:04 Sodium Chloride 0.9% 10 Ml Flush Syringe IV PRN PRN LINE FLUSH Tamsulosin HCl 0.4 mg 05/05/21 22:00 05/06/21 15:35 Tamsulosin 0.4 Mg Cap PO 0.4 mg DAILY MARILY Administration
[2021-05-07] MEDS ORDERED: WATER FOR IRRIG STERILE 1,500 ML BOTTLE IR ONE ×2 (08:27)
[2021-05-07] MEDS ORDERED: IOHEXOL 300 MG/ML 50ML IV ONE ×2 (08:27)
[2021-05-07] MEDS ORDERED: WATER FOR IRRIG STERILE 2000 ML IR ONE ×2 (08:27)
[2021-05-07] MEDS ORDERED: ONDANSETRON 4 MG/2 ML INJ ONE (08:35)
--- NOTE | 2021-05-07 08:52 | Discharge Summary ---
Short Stay Discharge Plan Activity: other (no straining ) Weight Bearing Status: Full Weight Bearing Diet: regular Special Instructions: other (inc fluids ) Follow up with: PRIMARY CARE, [Primary Care Provider] - 7 Days ADRIANO YADAV MD [Staff Physician] - 7 Days
--- NOTE | 2021-05-07 08:52 | Post Operative Note ---
Pre-op diagnosis: stone r Post-op diagnosis: same Findings: stone Procedure: cysto stone extraction j stent Anesthesia: GETA Surgeon: ADRIANO YADAV Estimated blood loss: none Pathology: list (stone) Specimen disposition: given to patient/family Condition: stable Disposition: PACU
--- NOTE | 2021-05-07 10:02 | Anesthesia Day of Surgery ---
Anesthesia Day of Surgery - Day of Surgery Patient Examined: Yes Patient H&P Reviewed: Yes Patient is NPO: Yes
--- NOTE | 2021-05-07 10:03 | Post Anesthesia Evaluation ---
- Post Anesthesia Evaluation Patient Participated: Yes Airway Patent: Yes Stable Respiratory Function: Yes Nausea/Vomiting: No Temp > 96.8F: Yes Pain Manageable: Yes Adequeate Hydration: Yes Anesthesia Complications: No
--- NOTE | 2021-05-07 10:24 | Fluoroscopy Report ---
FL retrograde urography Technique: Intraoperative fluoroscopic guidance was provided. Fluoroscopy time: 1.1 minutes. Fluoroscopy images: 7. Findings/Impression: Intraoperative fluoroscopic guidance for right ureteral stone extraction and tata cement of right ureteral stent. Please see procedure report for further details. Signer Name: Kelvin Adler MD Signed: 05/07/2021 10:20 AM Workstation Name: [email or web address]
--- NOTE | 2021-05-07 10:48 | Discharge Summary ---
Providers - Providers Date of Admission: 05/06/21 16:48 Date of discharge: 05/07/21 Attending physician: JOHNNIE SOLIS 05/05/21 22:04 Consult to Physician [CONS] Routine Comment: Consulting Provider: ADRIANO YADAV Physician Instructions: Reason For Exam: Right Renal calculus Primary care physician: [facility] [employer] Hospitalization Reason for admission: Right hydronephrosis and right ureteral stone Condition: Stable Hospital course: 26-year-old -Citizen Of [place] male with known history of HIV with CD4 count of 700s-LE April 2021 presenting to the emergency room today complaining of right- sided flank pain and right sided upper abdominal pain which started suddenly. The patient was admitted with diagnosis right ureteral stone, right hydronephrosis, UTI and HIV. Hospital course: 05/06/2021. CT of the abdomen and pelvis shows a 2 mm obstructing stone in the proximal right ureter with mild right hydronephrosis. Urology following. Continue IV antibiotics. Consider ID consultation. Follow-up urine and blood cultures. 05/07/2021. Repeat CT scan revealed no changes with obstructing stone in the proximal right ureter with hydronephrosis. Urology performed cystoscopy and extraction of stone with J stent placement. Continue pain control and supportive treatment with IV fluid hydration. Urology felt patient could discharge home. Dedicated discharge time 35 minutes Disposition: DC-01 TO HOME OR SELFCARE Final Discharge Diagnosis (Prints w/discharge instructions): Right ureteral stone, right hydronephrosis, UTI, HIV Core Measure Documentation - Palliative Care Palliative Care/ Comfort Measures: Not Applicable - Core Measures Any of the following diagnoses?: none Exam - Constitutional Vitals: Temp Pulse Resp BP Pulse Ox 97.4 F L 60 15 123/81 96 05/07/21 09:40 05/07/21 09:35 05/07/21 09:35 05/07/21 09:35 05/07/21 09:35 General appearance: Present: no acute distress, well-nourished - EENT Eyes: Present: PERRL ENT: hearing intact, clear oral mucosa - Neck Neck: Present: supple, normal ROM - Respiratory Respiratory effort: normal Respiratory: bilateral: CTA - Cardiovascular Heart Sounds: Present: S1 & S2. Absent: rub, click - Extremities Extremities: pulses symmetrical, No edema Peripheral Pulses: within normal limits - Abdominal General gastrointestinal: Present: soft, non-tender, non-distended, normal bowel sounds Male genitourinary: Present: normal - Integumentary Integumentary: Present: clear, warm, dry - Musculoskeletal Musculoskeletal: gait normal, strength equal bilaterally - Psychiatric Psychiatric: appropriate mood/affect, intact judgment & insight - Neurologic Neurologic: CNII-XII intact, moves all extremities Plan Activity: advance as tolerated Weight Bearing Status: Weight Bear as Tolerated Diet: regular Follow up with: ADRIANO YADAV MD [Staff Physician] - 7 Days PRIMARY CARE, [Primary Care Provider] - 7 Days Prescriptions: Tamsulosin [Flomax] 0.4 mg PO DAILY #12 capsule
--- NOTE | 2021-05-07 11:12 | Operative Report ---
DATE OF SURGERY: 05/07/2021 PREOPERATIVE DIAGNOSIS: Severe intermittent pain for right ureteral stone. POSTOPERATIVE DIAGNOSES: Severe intermittent pain for right ureteral stone with human immunodeficiency virus. PROCEDURES: Cystoscopy, right retrograde stone extraction, double-J stent. SURGEON: Dr. Phelps. ANESTHESIA: General. FINDINGS: This gentleman with severe intermittent pain, right flank. He now presents for treatment. All risks and implications discussed. DESCRIPTION OF PROCEDURE: The patient was brought to the operating room and was placed in the operating table. Following induction of anesthesia, placed in lithotomy position, prepped and draped in the usual sterile fashion. Cystourethroscopy showed an open bladder neck. No trabeculation, no lesions. Stone was in the orifice. With manipulation, we were able to be extracted. Retrograde showed a kinking of the mid to upper ureter where the stone initially was obstructing. We straightened out with a wire and then placed a double-J and left the string. The patient tolerated the procedure well and brought to recovery in stable condition. Stone will be given to the patient. TID: [id number] RECEIPT: [id number] SHYLA/LEORA
[2021-05-07] MEDS: ACETAMINOPHEN 325 MG TAB PO PRN (14:02)
[2021-05-07] MEDS: TAMSULOSIN 0.4 MG CAP PO SCH (14:04)
[2021-05-07 16:26] VITALS: BP 121/73
== END 2021-05-07 16:41 | disposition home or self-care (01) | DRG 690 ==
LOC: ED 17:03 → 3A 21:49 → 4A 22:28 → OBSVTOIN 05-06 16:48
PROVIDERS: ADMIT Internal Medicine Geriatric Medicine; ATTEND Hospitalist
PROC: BT1F1ZZ Fluoroscopy of Left Kidney, Ureter and Bladder using Low Osmolar Contrast (ICD-10-PCS; principal; 2021-05-07)
PROC: 0T7C8DZ Dilation of Bladder Neck with Intraluminal Device, Via Natural or Artificial Opening Endoscopic (ICD-10-PCS; 2021-05-07)
PROC: 0TCC8ZZ Extirpation of Matter from Bladder Neck, Via Natural or Artificial Opening Endoscopic (ICD-10-PCS; 2021-05-07)
DX: N13.6 Pyonephrosis (principal); Z21 Asymptomatic human immunodeficiency virus [HIV] infection status; Z79.899 Other long term (current) drug therapy
CPT/HCPCS: 36415; 74176; 74177; 74420; 80048; 80076; 81001; 82962; 83690; 85025; 85610; 87040; 87086; 96361; 96365; 96375; 96376; G0378; C1726; C1758; C2617; J0696; J1170; J2405; J2704; J7030; Q9967

== ENCOUNTER 2021-05-11 09:43 | Emergency (ER) | payer BC ==
--- NOTE | 2021-05-11 11:00 | Emergency Department Report ---
ED General Adult HPI - General Chief complaint: Urogenital-Male Stated complaint: STENT REMOVAL Time Seen by Provider: 05/11/21 10:32 Source: patient Mode of arrival: Ambulatory Limitations: No Limitations - History of Present Illness Initial comments: Patient is a 26-year-old male presents emergency room with complaints of his ureteral stent possibly being loose. Patient was evaluated in the emergency department last week and was found to have an obstructing nephrolithiasis causing hydronephrosis and he had a ureteral stent placed by Dr. Phelps, urology. Patient states that yesterday he was in the shower and states that he believes the stent came loose. He states he is having hematuria and some increased discomfort. He denies any fever, nausea, vomiting, diarrhea. No other past medical history. No allergies to medications. - Related Data Home Medications Medication Instructions Recorded Confirmed Last Taken Bictegrav/Emtricit/Tenofov Ala 1 tab PO DAILY 05/05/21 05/05/21 Unknown [Biktarvy 50-200-25 mg (Nf)] Previous Rx's Medication Instructions Recorded Last Taken Type Tamsulosin [Flomax] 0.4 mg PO DAILY #12 capsule 05/07/21 Unknown Rx Allergies Allergy/AdvReac Type Severity Reaction Status Date / Time No Known Allergies Allergy Verified 05/11/21 09:51 ED Review of Systems ROS: Stated complaint: STENT REMOVAL Other details as noted in HPI Comment: All other systems reviewed and negative ED Past Medical Hx - Past Medical History Hx Hypertension: No Hx Liver Disease: No Hx Renal Disease: No (hynephrosis 2/2 renal stone with normal renal function) Hx Asthma: Yes (rare inhaler use) Hx HIV: Yes - Social History Smoking Status: Never Smoker Substance Use Type: None - Medications Home Medications: Home Medications Medication Instructions Recorded Confirmed Last Taken Type Bictegrav/Emtricit/Tenofov Ala 1 tab PO DAILY 05/05/21 05/05/21 Unknown History [Biktarvy 50-200-25 mg (Nf)] Tamsulosin [Flomax] 0.4 mg PO DAILY #12 capsule 05/07/21 Unknown Rx ED Physical Exam - General Limitations: No Limitations General appearance: alert, in no apparent distress - Head Head exam: Present: atraumatic, normocephalic - Eye Eye exam: Present: normal appearance - ENT ENT exam: Present: mucous membranes moist - Respiratory Respiratory exam: Present: normal lung sounds bilaterally. Absent: respiratory distress, wheezes, rales, rhonchi, stridor, chest wall tenderness, accessory muscle use, decreased breath sounds, prolonged expiratory - Cardiovascular Cardiovascular Exam: Present: regular rate, normal rhythm, normal heart sounds. Absent: systolic murmur, diastolic murmur, rubs, gallop - Neurological Exam Neurological exam: Present: alert, oriented X3 - Psychiatric Psychiatric exam: Present: normal affect, normal mood - Skin Skin exam: Present: warm, dry, intact ED Course Vital Signs 05/11/21 05/11/21 09:53 11:42 Temperature 98.6 F 98.6 F Pulse Rate 72 72 Respiratory 16 16 Rate Blood Pressure 113/73 O2 Sat by Pulse 98 98 Oximetry - Consultations Consultation #1: 05/11/21 11:[address] Phelps, he is currently in the OR 05/11/21 11:[address] Phelps nurse, they want patient to go to his office now and he wi ll see the patient in the office ED Medical Decision Making - Medical Decision Making Patient is a 26-year-old male presents emergency room with complaints of his ureteral stent possibly being loose. Patient was evaluated in the emergency department last week and was found to have an obstructing nephrolithiasis causing hydronephrosis and he had a ureteral stent placed by Dr. Phelps, urology. Patient states that yesterday he was in the shower and states that he believes the stent came loose. He states he is having hematuria and some i ncreased discomfort. He denies any fever, nausea, vomiting, diarrhea. No other past medical history. No allergies to medications. Vitals are normal. Offered patient pain medication, he politely declined, he states he is not having any pain currently.spoke to Dr. Phelps nurse, they want patient to go to his office now and he will see the patient in the office. Patient states he is going to go to the office right now, he is alert and oriented x3, he is stable for discharge, he is ambulatory without difficulty, he is afebrile, he denies any pain currently. Critical care attestation.: If time is entered above; I have spent that time in minutes in the direct care of this critically ill patient, excluding procedure time. ED Disposition Clinical Impression: Displacement of ureteral stent Qualifiers: Encounter type: initial encounter Qualified Code(s): T83.122A - Displacement of indwelling ureteral stent, initial encounter Disposition: DC TO HOME OR SELFCARE Is pt being admited?: No Does the pt Need Aspirin: No Condition: Stable Additional Instructions: Please go to the Dr Phelps office now. Return to emergency room for any new or worse symptoms. Referrals: ADRIANO PHELPS MD [Staff Physician] - [facility] Time of Disposition: 11:26 Print Language: KHMER
[2021-05-11 11:02] VITALS: BP 113/73
== END 2021-05-11 11:41 | disposition home or self-care (01) ==
LOC: ED 09:43
DX: T83.122A Displacement of indwelling ureteral stent, initial encounter (principal); J45.909 Unspecified asthma, uncomplicated; Z21 Asymptomatic human immunodeficiency virus [HIV] infection status; Z79.899 Other long term (current) drug therapy; Y92.89 Other specified places as the place of occurrence of the external cause
CPT/HCPCS: 99282